=== PATIENT | female | born 1940 | race Caucasian/White ===

== ENCOUNTER 2017-02-11 14:35 | Emergency (ER) | payer MEDICARE, BC ==
[~2017-02-11 14:35] MED LIST: CIPRO250 MG PO; MOBIC PO; TRANXENE PO
[2017-02-11 15:23] LABS: URINE SOURCE CLEAN CATCH
[2017-02-11 15:40] LABS: URINE APPEARANCE CLEAR; URINE BILIRUBIN NEG (NEG); URINE BLOOD 1+ (NEG); URINE COLOR YELLOW; URINE GLUCOSE NEG (NEG); URINE KETONE NEG (NEG); URINE LEUKOCYTE ESTERASE TRACE (NEG); URINE NITRATE NEG (NEG); URINE PROTEIN NEG (NEG); URINE SPECIFIC GRAVITY 1.003 (1.003-1.035); URINE UROBILINOGEN 0.2 MG/DL (NEG)
[2017-02-11 15:54] LABS: CULTURE INDICATED? NO; URBCS1 AUWI 0-2 /[HPF] (0-2); URINE BACTERIA AUWI NEG (NEGATIVE); URINE SQUAMOUS EPITHELIAL CELL NONE SEEN /[HPF]
== END 2017-02-11 16:20 | disposition home or self-care (01) ==
LOC: CED 14:35
DX: R31.9 Hematuria, unspecified (principal); Z98.890 Other specified postprocedural states; Z88.0 Allergy status to penicillin; Z88.2 Allergy status to sulfonamides
CPT/HCPCS: 81003; 99282

== ENCOUNTER 2017-06-01 19:16 | Emergency (ER) | payer MEDICARE, BC ==
[~2017-06-01] VITALS: Ht 177.8 cm; Wt 67.6 kg
--- NOTE | ~2017-06-01 | CT4 ---
[facility] A Service of [facility] RADIOLOGY TEXT RESULTS PATIENT: HAIR BALTAZAR LOCATION: [facility] : 42 UNIT #: [id number] AGE: [address]: Barney Gutierrez MD SEX: F ORDER DR: [id number] [facility] [address] [place], [place] [address] [id number] MR#: [id number] Acc #: [id number] NAME: HAIR BALTAZAR : 1940 SEX: F STUDY DATE/TIME: 06/01/2017 22:08 UNIT: [facility] ROOM: STUDY DESCRIPTION: CT Abd and Pelv Wo Cont Attending Physician: Jung Gutierrez M.D. Ordering Physician: Ed Sorin Louis M.D. Primary Care Physician: Joby Gonzales M.D. MEDICAL IMAGING REPORT This report is preliminary unless electronic signature is present EXAM Abdomen and pelvis CT 06/01 at 22:08 INDICATIONS Right flank pain for the last 3 days. History of kidney stones. Pain rates 6 out of 10. TECHNIQUE Axial images were obtained through the abdomen and pelvis without contrast. Multiplanar reformats were obtained. No comparison. This CT exam was performed with one or more of the following radiation dose reduction techniques: automatic control, adjustment of mA and/or kV according to patient size, and iterative reconstruction. FINDINGS ABDOMEN: There is a 5 mm noncalcified nodule in the right lower lobe. There are at least two less than 5 mm noncalcified nodules in the left lower lobe abutting the pleura. Consider followup chest CT in 6 months for further evaluation. Gallbladder contains a stone but is otherwise unremarkable. No biliary obstruction is seen. There is a left adrenal low density mass measuring 3.3 x 2.6 cm. Density measurements are compatible with a benign adenoma. Given its size, I would recommend followup at the time of the patient's chest CT. Tiny nonobstructing stone is present in the right kidney. No ureteral stones are seen on either side, and there is no hydronephrosis. Unenhanced solid organs are otherwise normal. Unopacified GI tract is grossly normal. No adenopathy or free fluid is seen. PELVIS: There are no lower ureteral stones. Urinary bladder is mildly distended but otherwise normal. There is a complex mixed echogenicity lesion involving the left ovary. Non emergent followup with pelvic ultrasound is recommended. Neoplasm not excluded. The lesion overall measures about 4.9 x 4.2 cm. There are calcified uterine fibroids. The [facility] A Service of [facility] & [facility] RADIOLOGY TEXT RESULTS PATIENT: HAIR BALTAZAR LOCATION: [facility] : 42 UNIT #: [id number] AGE: [address]: Barney Gutierrez MD SEX: F ORDER DR: appendix is normal. The remainder of the unopacified GI tract is within normal limits. No suspicious osseous lesions in the abdomen or pelvis. IMPRESSION 1. Tiny nonobstructing stone in the right kidney. No ureteral stones are seen on either side, and there is no hydronephrosis. 2. At least 3 noncalcified nodules in the lung bases. Chest CT followup in 6 months recommended. 3. Large left adrenal mass which is low in density. Density measurements suggest a benign adenoma. Attention on followup chest CT suggested. 4. No acute findings in the GI tract. The appendix is normal. 5. Complex left ovarian mass measuring 4.2 x 4.9 cm. While this could be benign, neoplasm not excluded, particularly in a patient of this age non emergent pelvic ultrasound suggested for follow up purposes. 6. Cholelithiasis. 7. Uterine fibroids. Dictated by... Joby Oglesby Jr., M.D. THIS IS AN ELECTRONICALLY VERIFIED REPORT Joby Oglesby Jr., M.D. at 06/02/2017 8:49 PM JOEY/taniya TD: 06/02/2017 05:52 JOB #: [id number] MEDICAL IMAGING REPORT Page 1 of 1 COPY
[2017-06-01 20:09] LABS: BASOPHIL% 0.5 % (0-2.5); EOSINOPHIL# 0.1 X10e3 (0-0.7); EOSINOPHIL% 1.6 % (0.0-7.0); HEMATOCRIT 43.8 % (35.0-45.0); HEMOGLOBIN 14.4 gm/dL (12.0-16.0); LYMPHOCYTE# 1.2 X10e3 (1.0-3.5); LYMPHOCYTE% 14.9 % (17.0-45.0); MEAN CELL VOLUME 92.2 FL (83-96); MEAN CORPUSCULAR HEMOGLOBIN 30.3 PG (28-34); MEAN CORPUSCULAR HGB CONC 32.9 g/dL (30-36); MEAN PLATELET VOLUME 8.6 FL (6.5-11.5); MONOCYTE# 0.5 X10e3 (0-1.0); MONOCYTE% 5.9 % (3.0-12.0); NEUTROPHIL# 6.2 X10e3 (1.5-7.1); NEUTROPHIL% 77.1 % (40-75); PLATELET COUNT 216 X10e3 (140-420); RED BLOOD COUNT 4.75 X10e (3.90-5.30); RED CELL DISTRIBUTION WIDTH 12.9 % (11.0-15.5)
[2017-06-01 20:10] LABS: DIFF IND NO
[2017-06-01 20:28] LABS: ALBUMIN SERUM 4.3 g/dL (3.5-5.0); BILIRUBIN, DIRECT 0.1 mg/dL (0.0-0.2); BILIRUBIN,TOTAL 1.1 mg/dL (0.2-2.0); CALCIUM SERUM 9.4 mg/dL (8.4-10.2); GLOM FILT RATE Estimated 54.7 mL/min (>60); POTASSIUM 3.8 mmol/L (3.5-5.1); PROTEIN TOTAL SERUM 7.9 g/dL (6.0-8.3)
[2017-06-01 20:50] LABS: URINE SOURCE CLEAN CATCH
[2017-06-01 20:56] LABS: URINE APPEARANCE CLEAR; URINE BILIRUBIN NEG (NEG); URINE BLOOD NEG (NEG); URINE COLOR YELLOW; URINE GLUCOSE NEG (NEG); URINE KETONE NEG (NEG); URINE LEUKOCYTE ESTERASE NEG (NEG); URINE NITRATE NEG (NEG); URINE PROTEIN NEG (NEG); URINE SPECIFIC GRAVITY 1.005 (1.003-1.035); URINE UROBILINOGEN 0.2 MG/DL (NEG)
[2017-06-01 21:02] LABS: CULTURE INDICATED? NO
== END 2017-06-01 23:37 | disposition home or self-care (01) ==
LOC: CED 19:16
PROVIDERS: Emergency Medicine
DX: K80.20 Calculus of gallbladder without cholecystitis without obstruction (principal); N20.0 Calculus of kidney; N83.202 Unspecified ovarian cyst, left side; F41.9 Anxiety disorder, unspecified; I49.9 Cardiac arrhythmia, unspecified; Z86.14 Personal history of Methicillin resistant Staphylococcus aureus infection; Z88.0 Allergy status to penicillin; Z88.1 Allergy status to other antibiotic agents; Z88.2 Allergy status to sulfonamides
CPT/HCPCS: 36415; 74176; 80048; 80076; 81003; 82150; 83690; 85025; 99284

== ENCOUNTER 2017-06-18 17:05 | Emergency (ER) | payer MEDICARE, BC ==
[~2017-06-18] VITALS: Ht 177.8 cm; Wt 67.6 kg
== END 2017-06-18 17:53 | disposition home or self-care (01) ==
LOC: CED 17:05
DX: I10 Essential (primary) hypertension (principal); Z88.0 Allergy status to penicillin; Z88.2 Allergy status to sulfonamides; Z88.8 Allergy status to other drugs, medicaments and biological substances
CPT/HCPCS: 99283